=== PATIENT | female | born 1965 | race Caucasian/White ===

== ENCOUNTER → 2018-04-20 | Outpatient (CLI) | payer BC ==
[~2018-04-20] MED LIST: ALBU90OI6; AMLO5 PO; ASPI81CH PO; ASPI81EC PO; Alora1 EAC1 TD; Ativan1 MG PO; BACL10 PO; BENTYL10 MG; BENTYL10 MG PO; BUDE6HFA; CEPH500 PO; DOCSEN PO; DOCU100 PO; ESTR.1TPB TOP; FAMO20 PO; FLUSAL2505; FOLBEE; HYOS.125 SL; IBUP800 PO; LEVSOD125 PO; LEVSOD137 PO; LORA1 PO; METTREX2.5; NABU500; NEBI5 PO; NITR.4SL SL; NITR.6SL SL; OMEP20ER; OMEP20ER PO; ONDA4 PO; OXYB5 PO; OXYC5 PO; PANT40; RANI150 PO; RANO500T PO; RXCLIN PO; SPIR25 PO; Synthroid/Lev0.05 MG; THYR60; TORSE20 PO; TRAACE; TRAM50; TRAM50 PO; VARE1 PO; VERA120ERB PO; VERA180ERB PO; Valium5 MG PO
[2018-04-20 13:16] LABS: BASOPHILS ABSOLUTE AUTO 0.07 K/mm3 (0.00-0.23); BASOPHILS PERCENT AUTO 1 % (0-2); EOSINOPHILS ABSOLUTE AUTO 0.13 K/mm3 (0.00-0.68); EOSINOPHILS PERCENT AUTO 1 % (0-6); Hematocrit 44.7 % (33.0-51.0); Hemoglobin 15.2 g/dL (11.5-16.0); IMMATURE GRAN ABSOLUTE AUTO 0.04 K/mm3 (0.00-0.10); IMMATURE GRAN PERCENT AUTO 0 % (0-1); LYMPHOCYTES ABSOLUTE AUTO 2.41 K/mm3 (0.84-5.20); LYMPHOCYTES PERCENT AUTO 27 % (21-46); MONOCYTES ABSOLUTE AUTO 0.61 K/mm3 (0.16-1.47); MONOCYTES PERCENT AUTO 7 % (4-13); Mean Corpuscular HGB 29.7 pg (26.0-34.0); Mean Corpuscular Volume 87 fL (80-100); Mean Platelet Volume 8.9 fL (9.1-12.4); NEUTROPHILS ABSOLUTE AUTO 5.75 K/mm3 (1.96-9.15); NEUTROPHILS PERCENT AUTO 64 % (41-73); Platelet Count 411 K/mm3 (150-400); RDW Coefficient Variation 13.2 % (11.7-14.2); RDW Standard Deviation 42.4 fL (35.1-46.3); Red Blood Cell Count 5.12 M/mm3 (3.80-5.20); White Blood Cell Count 9.01 K/mm3 (4.00-11.30)
[2018-04-20 13:30] LABS: Alanine Aminotransfer (ALT/SGP 19 U/L (12-78); Alk Phos 81 U/L (40-126); Anion Gap 11 mmol/L (6-16); Aspartate Aminotrans (AST/SGOT 19 U/L (12-37); Bilirubin, Total 0.4 mg/dL (0.1-1.0); Blood Urea Nitrogen 12 mg/dL (8-24); Bun/Creatinine Ratio 15.2 (12.0-20.0); CO2, Blood 24 mmol/L (21-32); Calcium, Blood 9.3 mg/dL (8.5-10.1); Chloride, Blood 104 mmol/L (98-108); Creatinine, Blood 0.79 mg/dL (0.40-1.00); Globulin, Blood 3.9 g/dL (2.2-4.0); Glomerular Filtration Rate >60 (60-); Glucose, Blood 88 mg/dL (70-99); Potassium, Blood 3.8 mmol/L (3.5-5.5); Sodium, Blood 139 mmol/L (136-145); Total Protein, Blood 7.9 g/dL (6.4-8.2)
[2018-04-20 13:37] LABS: Troponin I <0.017 ng/mL (0.000-0.040)
== END | disposition home or self-care (01) ==
LOC: LAB SHORT 13:11 → LAB EV 13:11
PROVIDERS: Physician Assistant
DX: R07.9 Chest pain, unspecified (principal)
CPT/HCPCS: 80053; 83880; 84484; 85025

== ENCOUNTER 2019-12-23 16:35 | Inpatient (IN) | payer OTHER, BC ==
[~2019-12-23] VITALS: Ht 160 cm; Wt 132.5 kg
[~2019-12-23 16:35] MED LIST changes: -OMEP20ER
[2019-12-23 17:11] LABS: BASOPHILS ABSOLUTE AUTO 0.05 K/mm3 (0.00-0.23); BASOPHILS PERCENT AUTO 0 % (0-2); EOSINOPHILS ABSOLUTE AUTO 0.09 K/mm3 (0.00-0.68); EOSINOPHILS PERCENT AUTO 1 % (0-6); Hematocrit 47.8 % (33.0-51.0); Hemoglobin 15.6 g/dL (11.5-16.0); IMMATURE GRAN ABSOLUTE AUTO 0.07 K/mm3 (0.00-0.10); IMMATURE GRAN PERCENT AUTO 1 % (0-1); LYMPHOCYTES ABSOLUTE AUTO 1.38 K/mm3 (0.84-5.20); LYMPHOCYTES PERCENT AUTO 11 % (21-46); MONOCYTES ABSOLUTE AUTO 0.83 K/mm3 (0.16-1.47); MONOCYTES PERCENT AUTO 7 % (4-13); Mean Corpuscular HGB 29.7 pg (26.0-34.0); Mean Corpuscular HGB Conc 32.6 g/dL (31.5-36.5); Mean Corpuscular Volume 91 fL (80-100); NEUTROPHILS ABSOLUTE AUTO 9.89 K/mm3 (1.96-9.15); NEUTROPHILS PERCENT AUTO 80 % (41-73); Platelet Count 399 K/mm3 (150-400); RDW Coefficient Variation 12.9 % (11.7-14.2); RDW Standard Deviation 43.1 fL (35.1-46.3); Red Blood Cell Count 5.26 M/mm3 (3.80-5.20); White Blood Cell Count 12.31 K/mm3 (4.00-11.30)
[2019-12-23 17:41] LABS: Alanine Aminotransfer (ALT/SGP 54 U/L (12-78); Albumin, Blood 4.2 g/dL (3.4-5.0); Albumin/Globulin Ratio 1.1 (0.8-1.8); Alk Phos 147 U/L (50-136); Anion Gap 5 mmol/L (6-16); Aspartate Aminotrans (AST/SGOT 169 U/L (12-37); Bilirubin, Total 0.9 mg/dL (0.1-1.0); Blood Urea Nitrogen 15 mg/dL (8-24); Bun/Creatinine Ratio 21.3 (12.0-20.0); CO2, Blood 28 mmol/L (21-32); Calcium, Blood 9.5 mg/dL (8.5-10.1); Chloride, Blood 104 mmol/L (98-108); Creatinine, Blood 0.71 mg/dL (0.40-1.00); Globulin, Blood 3.9 g/dL (2.2-4.0); Glomerular Filtration Rate >60 (60-); Glucose, Blood 116 mg/dL (70-99); Potassium, Blood 3.7 mmol/L (3.5-5.5); Sodium, Blood 137 mmol/L (136-145); Total Protein, Blood 8.1 g/dL (6.4-8.2)
[2019-12-23] MEDS ORDERED: DOTTI1 EAC1 TOP (18:29)
[2019-12-23] MEDS ORDERED: Symbicort 80-10.2 GM INH (18:30)
[2019-12-23] MEDS ORDERED: SPIRIVA RESPIMAT4 GM INH (18:30)
[2019-12-23] MEDS ORDERED: AMLODIPINE BESYL5 MG PO (18:31)
[2019-12-23] MEDS ORDERED: Flonase 0.05% N16 GM (18:31)
[2019-12-23] MEDS ORDERED: Vitamin D2000 UNIT PO (18:40)
[2019-12-23] MEDS ORDERED: Aspirin EC81 MG PO (18:40)
--- NOTE | 2019-12-24 03:52 | NUR ---
SHIFT SUMMARY RECIEVED REPORT FROM KEN BAER, ED @ 9449. ARRIVED TO MEDICAL FLOOR @ 2201 VIA WHEELCHAIR. MINIMAL TX ASSISTANCE NEEDED. ORIENTED TO ROOM AND CALL SYSTEM. A/O, ABLE TO MAKE NEEDS KNOWN. COOPERATIVE WITH CARE. NO C/O PAIN/DISCOMFORT; REPORTED THIS AM NO PAIN CURRENTLY. STATED FELT SLIGHTLY NAUSEATED; MEDICATED PER EMAR. IV ABX INFUSED W/O COMPLICATION. RUNNING LR @ 125 ML/HR. STATED ABLE TO REST FOR SEVERAL HOURS. REMAINED NPO. WILL HAVE CONSULT WITH SX TODAY. CPAP UTILIZED AND SET UP BY RT. NO ACUTE CHANGES NOTED SINCE ARRIVAL. WCTM. BED IN LOWEST POSITION. CALL LIGHT AND BELONGINGS WITHIN REACH. REPORT TO ONCKUNAL BAER.
[2019-12-24 04:33] LABS: BASOPHILS ABSOLUTE AUTO 0.03 K/mm3 (0.00-0.23); BASOPHILS PERCENT AUTO 1 % (0-2); EOSINOPHILS ABSOLUTE AUTO 0.06 K/mm3 (0.00-0.68); EOSINOPHILS PERCENT AUTO 1 % (0-6); Hematocrit 41.4 % (33.0-51.0); Hemoglobin 13.2 g/dL (11.5-16.0); IMMATURE GRAN ABSOLUTE AUTO 0.03 K/mm3 (0.00-0.10); IMMATURE GRAN PERCENT AUTO 1 % (0-1); LYMPHOCYTES ABSOLUTE AUTO 1.26 K/mm3 (0.84-5.20); LYMPHOCYTES PERCENT AUTO 23 % (21-46); MONOCYTES ABSOLUTE AUTO 0.62 K/mm3 (0.16-1.47); MONOCYTES PERCENT AUTO 11 % (4-13); Mean Corpuscular HGB 29.4 pg (26.0-34.0); Mean Corpuscular HGB Conc 31.9 g/dL (31.5-36.5); Mean Corpuscular Volume 92 fL (80-100); Mean Platelet Volume 8.9 fL (9.1-12.4); NEUTROPHILS ABSOLUTE AUTO 3.57 K/mm3 (1.96-9.15); NEUTROPHILS PERCENT AUTO 64 % (41-73); Platelet Count 327 K/mm3 (150-400); RDW Coefficient Variation 13.2 % (11.7-14.2); RDW Standard Deviation 44.9 fL (35.1-46.3); Red Blood Cell Count 4.49 M/mm3 (3.80-5.20); White Blood Cell Count 5.57 K/mm3 (4.00-11.30)
[2019-12-24 04:56] LABS: Alanine Aminotransfer (ALT/SGP 385 U/L (12-78); Albumin, Blood 3.2 g/dL (3.4-5.0); Albumin/Globulin Ratio 1.1 (0.8-1.8); Alk Phos 162 U/L (50-136); Anion Gap 4 mmol/L (6-16); Bilirubin, Total 1.8 mg/dL (0.1-1.0); Blood Urea Nitrogen 13 mg/dL (8-24); Bun/Creatinine Ratio 16.7 (12.0-20.0); CO2, Blood 27 mmol/L (21-32); Calcium, Blood 8.4 mg/dL (8.5-10.1); Chloride, Blood 112 mmol/L (98-108); Creatinine, Blood 0.78 mg/dL (0.40-1.00); Glomerular Filtration Rate >60 (60-); Glucose, Blood 102 mg/dL (70-99); Potassium, Blood 3.8 mmol/L (3.5-5.5); Sodium, Blood 143 mmol/L (136-145); Total Protein, Blood 6.2 g/dL (6.4-8.2)
[2019-12-24 05:04] LABS: Aspartate Aminotrans (AST/SGOT 1089 U/L (12-37)
--- NOTE | 2019-12-24 17:17 | NUR ---
DR TOPETE CALLED. REQUEST I RELAY TO PT: IN [place] STATES NO ERCP SUSY THIS POINT, CANT TELL IF STONE OR NOT WITH PRESENT CT, WILL REMOVE GALLBLADDER TOMORROW, WILL XRAY AT THAT TIME TO SEE FOR SURE. WILL HAVE ABILITY TO TELL IF NEEDS ERCP OR NOT AT THAT TIME. OKAYED CLR LIQUID DIET FOR TONITE THRU MIDNITE, PT ONLY WANTS ICE CHIPS, DISCUSSED WITH PT PER DR REQUEST. STATES WILL BE IN ROOM TOMORROW AM.
--- NOTE | 2019-12-24 19:30 | NUR ---
PT PLEASANT TODAY. HAVE MANAGED PAIN WITH AVIL MEDS. NAUSEA MOSTLY OKAY WITH ZOFRAN,BUT DID USE REGLAN THIS JEN. SHE IS CONCERNED ABOUT TAKING REGLAN FOR SIDE EFFECTS, BUT FELT REALLY NEEDED THIS JEN. WE WERE UNABLE TO DO MRI THIS AM, DR CHANGED TO CT, BUT DOES NOT SHOW WELL. PLANNING TO DO XRAY WHEN DO GALL BLADDER TOMORROW AM. NO OTHER CONCERNS AT THISTIME. BED IN LOW POSITION, CALL LIET IN REACH, CALLS APPROP
--- NOTE | 2019-12-25 04:15 | NUR ---
SHIFT SUMMARY: VSS. AFEB. 02 SATS 94-97% ON 2L VIA NC AND 2L BLEED IN TO CPAP. DESATS W/EXERTION DOWN TO 85%. PT MEDICATED X 1 SO FAR W/DILAUDID AND ZOFRAN W/GOOD EFFECT. HAS BEEN NAUSEAUS BUT NO VOMITING. NPO AFTER MIDNIGHT IN PREPARATION FOR SURGERY TODAY. EPIGASTRIC AND RUQ TENDERNESS W/PALPATION. ABD NON-DISTENDED. BT ACTIVE X 4. A/OX4. INDEPENDENT IN ROOM. SLEEPING W/ HOB ELEVATED >45 DEGREES FOR COMFORT. WILL CONT TO MONITOR.
[2019-12-25 05:19] LABS: Alanine Aminotransfer (ALT/SGP 481 U/L (12-78); Albumin, Blood 3.2 g/dL (3.4-5.0); Alk Phos 199 U/L (50-136); Anion Gap 7 mmol/L (6-16); Aspartate Aminotrans (AST/SGOT 615 U/L (12-37); Blood Urea Nitrogen 9 mg/dL (8-24); Bun/Creatinine Ratio 12.1 (12.0-20.0); CO2, Blood 25 mmol/L (21-32); Calcium, Blood 8.4 mg/dL (8.5-10.1); Chloride, Blood 108 mmol/L (98-108); Creatinine, Blood 0.74 mg/dL (0.40-1.00); Globulin, Blood 3.1 g/dL (2.2-4.0); Glomerular Filtration Rate >60 (60-); Glucose, Blood 98 mg/dL (70-99); Potassium, Blood 3.8 mmol/L (3.5-5.5); Sodium, Blood 140 mmol/L (136-145); Total Protein, Blood 6.3 g/dL (6.4-8.2)
--- NOTE | 2019-12-25 11:32 | NUR ---
PATIENT BELONGINGS TRANSFERRED TO ROOM 208.
--- NOTE | 2019-12-25 11:43 | NUR ---
PT ARRIVED TO UNIT AT APROX 1130 FROM PACU POD 0 LAP FERNANDA. LAP SITES X'S 4 COVERED WITH GAUZE/TAPE, C/D/I. PT DENIES PAIN AT THIS TIME. O2 SA 94% ON 4 L O2 NC.
--- NOTE | 2019-12-25 14:19 | NUR ---
REPORT RECIEVED THIS MORNING AT SHIFT CHANGE. AT COMPLETION OF REPORT, NURSES EXITED PATIENT ROOM TO FIND OR NURSE AT PATIENT CHART, COMPLETING CHART REVIEW. OR NURSE REQUESTED THIS NURSE TO CALL RT FOR BREATHING TREATMENT AND CBG CHECK, SEE EMAR AND RESULTS FOR TIME. SHORTLY AFTER, PATIENT TAKEN TO OR FOR PROCEDURE. THIS NURSE WAS NOTIFIED THAT PATIENT WOULD THEN GO TO SURGICAL FLOOR. AT ABOUT 1120 SURGICAL FLOOR NURSE REMBERTO CALLED THIS NURSE TO REQUEST MEDICATIONS AND PT BELONGINGS BE TRANSFERRED TO NEW ROOM. THIS NURSE NOTIFIED BY REMBERTO OF ROOM ASSIGNMENT, 208. AN CALLE TOOK PATIENT BELONGINGS TO NEW ROOM SHORTLY AFTER. THIS NURSE OFFERED TO GIVE REPORT THOUGH REMBERTO DECLINED AT THAT TIME STATING THAT SHE DID CHART REVIEW BUT WOULD CALL IF SHE HAD QUESTIONS.
--- NOTE | 2019-12-25 17:03 | NUR ---
SHIFT SUMMARY PT HAS DONE WELL SINCE ARRIVAL TO UNIT. PT MEDICATED FOR PAIN PER EMAR. PT TOLERATING SMALL AMOUNTS OF CLEAR LIQUID WITH NO N/V. INDEPENDENTLY AMBULATING TO BATHRROM-VOIDING.
--- NOTE | 2019-12-26 05:09 | NUR ---
SHIFT SUMMARY POD#1 LAP FERNANDA. AAOX4. ABD DISCOMFORT AT TOLERABLE LEVEL T/O NIGHT. NO NAUSEA/EMESIS. ABD INCISION WITH GAUZE C/D/I. UP INDEPENDENT IN ROOM. GOOD PO INTAKE + OUTPUT. IV ABX PER ORDERS. PT REPORTING MILD HEADACHE T/O NIGHT, CONTROLLED WITH TYLENOL. NO ACUTE CHANGES OVER NIGHT. AWAITING LABS THIS AM. PT RESTING IN BED AT THIS TIME WITH CALL LIGHT IN REACH.
[2019-12-26 05:38] LABS: Alanine Aminotransfer (ALT/SGP 327 U/L (12-78); Albumin, Blood 2.7 g/dL (3.4-5.0); Albumin/Globulin Ratio 0.9 (0.8-1.8); Alk Phos 164 U/L (50-136); Anion Gap 6 mmol/L (6-16); Aspartate Aminotrans (AST/SGOT 274 U/L (12-37); Bilirubin, Total 1.1 mg/dL (0.1-1.0); Blood Urea Nitrogen 8 mg/dL (8-24); Bun/Creatinine Ratio 10.9 (12.0-20.0); CO2, Blood 25 mmol/L (21-32); Calcium, Blood 8.3 mg/dL (8.5-10.1); Chloride, Blood 110 mmol/L (98-108); Creatinine, Blood 0.73 mg/dL (0.40-1.00); Globulin, Blood 2.9 g/dL (2.2-4.0); Glomerular Filtration Rate >60 (60-); Glucose, Blood 117 mg/dL (70-99); Potassium, Blood 3.4 mmol/L (3.5-5.5); Sodium, Blood 141 mmol/L (136-145); Total Protein, Blood 5.6 g/dL (6.4-8.2)
[2019-12-26] MEDS ORDERED: AMOCLA875 PO (11:40)
[2019-12-26] MEDS ORDERED: ROXICODONE5 MG PO (11:41)
--- NOTE | 2019-12-26 12:02 | NUR ---
DISCHARGE PT EDUCATED ON AND RECEIVED PRINTED DISCHARGE INSTRUCTIONS AND VERBALIZED AN UNDERSTANDING. HARD RX FOR ROXICODONE GIVEN TO PT AND AUGMENTIN ABX FAXED OVER TO [facility] IN [place] PER PT REQUEST. IV DC'D. PT GATHERING ALL PERSONAL BELONGINGS AND WAITING FOR RIDE HOME.
== END 2019-12-26 13:15 | disposition home or self-care (01) | DRG 419 ==
LOC: ER 16:35 → MEDS 21:57 → SURS 21:57 → MEDS 22:00 → SURS 12-25 11:19
PROVIDERS: Physician Assistant; Surgery; ADMIT Internal Medicine
PROC: 0FC94ZZ Extirpation of Matter from Common Bile Duct, Percutaneous Endoscopic Approach (ICD-10-PCS; 2019-12-25)
PROC: 0FT44ZZ Resection of Gallbladder, Percutaneous Endoscopic Approach (ICD-10-PCS; principal; 2019-12-25 08:00)
DX: K80.00 Calculus of gallbladder with acute cholecystitis without obstruction (principal); E11.9 Type 2 diabetes mellitus without complications; E03.9 Hypothyroidism, unspecified; J44.9 Chronic obstructive pulmonary disease, unspecified; I10 Essential (primary) hypertension; G47.33 Obstructive sleep apnea (adult) (pediatric); M79.7 Fibromyalgia; E06.3 Autoimmune thyroiditis
CPT/HCPCS: 36415; 74177; 74181; 76705; 80053; 82947; 83036; 83690; 84443; 84484; 85025; 93005; 93010; 94640; 94760; 94762; 96361; 96365; 96375; 96376; 99285-25; A9270; C1729; C9113; J0360; J1100; J1170; J1200; J1610; J1885; J2250; J2405; J2543; J2704; J2765; J3010; J7030; J7050; J7120; Q9967

== ENCOUNTER 2021-01-22 13:20 | Emergency (ER) | payer OTHER, BC ==
[~2021-01-22] VITALS: Ht 162.6 cm; Wt 101.6 kg
[~2021-01-22 13:20] MED LIST changes: +AMLODIPINE BESYL5 MG PO; +AMOCLA875 PO; +Aspirin EC81 MG PO; +DOTTI1 EAC1 TOP; +Flonase 0.05% N16 GM; +ROXICODONE5 MG PO; +SPIRIVA RESPIMAT4 GM INH; +Symbicort 80-10.2 GM INH; +Vitamin D2000 UNIT PO
[2021-01-22 15:46] LABS: BASOPHILS ABSOLUTE AUTO 0.01 K/mm3 (0.00-0.23); BASOPHILS PERCENT AUTO 0 % (0-2); EOSINOPHILS ABSOLUTE AUTO 0.02 K/mm3 (0.00-0.68); EOSINOPHILS PERCENT AUTO 1 % (0-6); Hematocrit 46.7 % (33.0-51.0); Hemoglobin 15.1 g/dL (11.5-16.0); IMMATURE GRAN ABSOLUTE AUTO 0.03 K/mm3 (0.00-0.10); IMMATURE GRAN PERCENT AUTO 1 % (0-1); LYMPHOCYTES ABSOLUTE AUTO 0.86 K/mm3 (0.84-5.20); LYMPHOCYTES PERCENT AUTO 29 % (21-46); MONOCYTES ABSOLUTE AUTO 0.27 K/mm3 (0.16-1.47); MONOCYTES PERCENT AUTO 9 % (4-13); Mean Corpuscular HGB 30.3 pg (26.0-34.0); Mean Corpuscular HGB Conc 32.3 g/dL (31.5-36.5); Mean Corpuscular Volume 94 fL (80-100); NEUTROPHILS ABSOLUTE AUTO 1.76 K/mm3 (1.96-9.15); NEUTROPHILS PERCENT AUTO 60 % (41-73); Platelet Count 201 K/mm3 (150-400); RDW Coefficient Variation 12.8 % (11.7-14.2); RDW Standard Deviation 44.4 fL (35.1-46.3); Red Blood Cell Count 4.99 M/mm3 (3.80-5.20); White Blood Cell Count 2.95 K/mm3 (4.00-11.30)
[2021-01-22 16:08] LABS: Alanine Aminotransfer (ALT/SGP 20 U/L (12-78); Albumin, Blood 3.5 g/dL (3.4-5.0); Albumin/Globulin Ratio 0.9 (0.8-1.8); Alk Phos 106 U/L (50-136); Anion Gap 2 mmol/L (6-16); Aspartate Aminotrans (AST/SGOT 30 U/L (12-37); Bilirubin, Total 0.2 mg/dL (0.1-1.0); Blood Urea Nitrogen 10 mg/dL (8-24); Bun/Creatinine Ratio 13.6 (12.0-20.0); CO2, Blood 27 mmol/L (21-32); Chloride, Blood 108 mmol/L (98-108); Creatinine, Blood 0.74 mg/dL (0.40-1.00); Globulin, Blood 3.8 g/dL (2.2-4.0); Glomerular Filtration Rate >60 (60-); Glucose, Blood 87 mg/dL (70-99); Potassium, Blood 3.7 mmol/L (3.5-5.5); Sodium, Blood 137 mmol/L (136-145); Total Protein, Blood 7.3 g/dL (6.4-8.2); Troponin I <0.015 ng/mL (0.000-0.040)
[2021-01-22] MEDS ORDERED: DEXA4 PO (16:40)
== END 2021-01-22 17:01 | disposition home or self-care (01) ==
LOC: ER 13:20
PROVIDERS: Physician Assistant
DX: U07.1 COVID-19 (principal); Z79.899 Other long term (current) drug therapy; Z79.82 Long term (current) use of aspirin
CPT/HCPCS: 36415; 71045; 80053; 83605; 84484; 85025; 93005; 93010; 99284-25; J7030

== ENCOUNTER → 2024-11-23 | Outpatient (CLI) | payer SELFPAY ==
[~2024-11-23] MED LIST changes: +DEXA4 PO
== END | disposition home or self-care (01) ==
LOC: LAB 08:10 → LAB SHORT 08:10
DX: L08.0 Pyoderma (principal)
CPT/HCPCS: 87070; 87077; 87147; 87186; 87205

== ENCOUNTER → 2024-12-16 | Outpatient (CLI) | payer BC | LOC: LAB 12:49 → LAB SHORT 12:49 | DX: R30.0 Dysuria (principal) | CPT/HCPCS: 87086 ==

== ENCOUNTER → 2024-12-16 | Outpatient (CLI) | payer BC ==
[2024-12-16 11:32] LABS: BASOPHILS ABSOLUTE AUTO 0.04 K/mm3 (0.00-0.23); BASOPHILS PERCENT AUTO 1 % (0-2); EOSINOPHILS ABSOLUTE AUTO 0.01 K/mm3 (0.00-0.68); EOSINOPHILS PERCENT AUTO 0 % (0-6); IMMATURE GRAN ABSOLUTE AUTO 0.04 K/mm3 (0.00-0.10); IMMATURE GRAN PERCENT AUTO 1 % (0-1); LYMPHOCYTES ABSOLUTE AUTO 0.63 K/mm3 (0.84-5.20); LYMPHOCYTES PERCENT AUTO 8 % (21-46); MONOCYTES ABSOLUTE AUTO 0.61 K/mm3 (0.16-1.47); MONOCYTES PERCENT AUTO 8 % (4-13); Mean Corpuscular Volume 91 fL (80-100); Mean Platelet Volume 8.7 fL (9.1-12.4); NEUTROPHILS ABSOLUTE AUTO 6.85 K/mm3 (1.96-9.15); NEUTROPHILS PERCENT AUTO 84 % (41-73); Platelet Count 242 K/mm3 (150-400); RDW Coefficient Variation 12.6 % (11.7-14.2); RDW Standard Deviation 41.9 fL (35.1-46.3); Red Blood Cell Count 5.16 M/mm3 (3.80-5.20); White Blood Cell Count 8.18 K/mm3 (4.00-11.30)
[2024-12-16 11:42] LABS: Albumin, Blood 3.8 g/dL (3.4-5.0); Bilirubin, Total 0.6 mg/dL (0.1-1.0); Calcium, Blood 9.1 mg/dL (8.5-10.1); Creatinine, Blood 0.75 mg/dL (0.40-1.00); Potassium, Blood 3.7 mmol/L (3.5-5.5); Total Protein, Blood 7.8 g/dL (6.4-8.2)
== END ==
LOC: LAB 11:27 → LAB SHORT 11:27
PROVIDERS: Chiropractor
DX: E86.0 Dehydration (principal)
CPT/HCPCS: 80053; 85025

== ENCOUNTER → 2025-01-06 | Outpatient (CLI) | payer BC | LOC: LAB SHORT 16:39 → LAB 16:39 | DX: L08.0 Pyoderma (principal) | CPT/HCPCS: 87070; 87077; 87186; 87205 ==